=== PATIENT | female | born 1945 ===

== ENCOUNTER 2018-03-19 07:36 | Outpatient (CLI) | payer OTHER | END 2018-03-19 07:38 | disposition home or self-care (01) | LOC: SONOGRAMA 07:36 → MAMO-SONO 09:15 | DX: M25.561 Pain in right knee (principal); E11.69 Type 2 diabetes mellitus with other specified complication; M23.200 Derangement of unspecified lateral meniscus due to old tear or injury, right knee; M25.461 Effusion, right knee ==

== ENCOUNTER 2018-04-05 07:04 | Outpatient (CLI) | payer OTHER | END 2018-04-05 07:24 | disposition home or self-care (01) | LOC: MRI 07:04 | DX: S83.211A Bucket-handle tear of medial meniscus, current injury, right knee, initial encounter (principal) | CPT/HCPCS: 73721 ==